=== PATIENT | female | born 1970 | race Caucasian/White ===

== ENCOUNTER → 2016-10-18 | Outpatient (CLI) | payer BC ==
--- NOTE | 2016-10-18 09:20 | WWHP ---
DATE OF SERVICE: 10/18/2016 CHIEF COMPLAINT: The patient is here for her routine gynecologic exam and mammogram. HPI: This is a 46-year-old, G2, P2 with an LMP of 10/18/2016. She states her periods seems to be just starting today and is very light. She states her periods are now starting with several days of spotting before it goes into the real flow. She is otherwise without complaints. PAST MEDICAL HISTORY: She was told she had a thyroid cyst in the past, but this has not caused any problems for her. She denies any other medical problems. MEDICATIONS: None. ALLERGIES: PENICILLIN, which caused hives. PAST SURGICAL HISTORY: None. 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 SOCIAL HISTORY: She denies tobacco and drug use and has 0 to 1 alcoholic drinks per week. She has been since 2000. 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 FAMILY HISTORY: Unchanged from the 2014 H&P. REVIEW OF SYSTEMS: Weight has been stable. She denies respiratory, cardiac, or GI problems. PHYSICAL EXAM: Blood pressure 136/85. Height 5 feet 9 inches. Weight 203 pounds. Temperature 98.3, pulse 74. This a well-developed, well-nourished white female who is alert and oriented x3 in no acute distress. HEENT is within normal limits. NECK: Supple without mass or thyromegaly. There are no palpable thyroid nodules noted. CHEST AND LUNGS: Clear to auscultation. HEART: Regular rate and rhythm. Breasts are without mass or discharge. Axillary exam is negative for adenopathy. BACK: Negative for CVA tenderness. ABDOMEN: Soft, nontender, without palpable masses. PELVIC EXAM: Normal external genitalia. Cervix and vagina reveal small amount of blood at the cervical os consistent with the onset of menstrual period. There is no significant blood in the vagina other than this. There is no evidence of prolapse. The uterus is retroverted, nongravid size and nontender. There are no palpable adnexal masses or tenderness. Rectal exam is negative for mass or tenderness and is negative for occult blood. EXTREMITIES: Nontender. IMPRESSION: A 46-year-old female with normal gynecologic exam. PLAN: 1. Pap smear was performed. 2. Self breast examination was discussed. 3. Mammogram will be done today. 4. The patient will keep a menstrual calendar and call if she is having menstrual problems. 5. She will return in one year.
--- NOTE | 2016-10-23 11:08 | MM ---
Reason for exam: screening (asymptomatic). Last mammogram was performed 2 years and 6 months ago. History: Family history of breast cancer in maternal grandmother at age 50. Physical Findings: A clinical breast exam by your physician is recommended on an annual basis and results should be correlated with mammographic findings. MG 3D Screening Mammo W/Cad Bilateral CC and MLO view(s) were taken. Prior study comparison: April 16, 2014, bilateral MG screening mammo w CAD. August 06, 2012, bilateral digital screening mammo w/CAD. The breast tissue is heterogeneously dense. This may lower the sensitivity of mammography. There is no discrete abnormality. No significant changes when compared with prior studies. ASSESSMENT: Negative, BI-RAD 1 RECOMMENDATION: Routine screening mammogram of both breasts in 1 year.
== END | disposition home or self-care (01) ==
LOC: WWCWWP 08:01
PROVIDERS: ATTEND Obstetrics & Gynecology
DX: Z12.31 Encounter for screening mammogram for malignant neoplasm of breast (principal)
CPT/HCPCS: 77063; G0202

== ENCOUNTER → 2019-06-17 | Outpatient (CLI) | payer BC ==
[2019-06-17 11:31] VITALS: BP 135/91; PULSE 75; RESP 16; TEMP 98
--- NOTE | 2019-06-17 12:19 | P.HPOB ---
History of Present Illness H&P Date: 06/17/19 Chief Complaint: The patient is here for her routine gynecologic exam and ma mmogram. This is a 48-year-old with an LMP of 06/04/2019. The patient has been regular with her menstrual periods, but did miss her menstrual period in March. They have been regular since then. She has been experiencing a slight dull discomfort in the right upper quadrant of the abdomen which she notices most of the time. When she is active, it is not as noticeable, but when she sits for a while she tends to notice it more. It does not seem to be affected by eating and she denies any GI symptoms. She is otherwise without complaints. Review of Systems She has gained about 7 pounds over the last 2 years. She denies respiratory, cardiac, or GI problems. Past Medical History Past Medical History: No Reported History Additional Past Medical History / Comment(s): She once had a thyroid cyst in the past. 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 History of Any Multi-Drug Resistant Organisms: None Reported Past Surgical History: No Surgical Hx Reported Past Psychological History: No Psychological Hx Reported Smoking Status: Never smoker Past Alcohol Use History: Occasional (1 or 2 per week) Additional History: She has been since 2000. 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 - Past Family History Mother Family Medical History: No Reported History Additional Family Medical History / Comment(s): Maternal grandmother and a maternal great aunt had breast cancer. Medications and Allergies Home Medications Medication Instructions Recorded Confirmed Type Magnesium Citrate 125 mg PO DAILY 06/17/19 06/17/19 History Allergies Allergy/AdvReac Type Severity Reaction Status Date / Time Penicillins Allergy Rash/Hives Unverified 06/17/19 11:31 Exam Vital Signs Temp Pulse Resp BP Pulse Ox 06/17/19 11:28 98.0 F 75 16 135/91 99 Intake and Output 06/16/19 06/17/19 06/17/19 22:59 06:59 14:59 Other: Weight 95.254 kg Height 5 feet 8 inches, weight 210 pounds, BMI 31.9. This is a well-developed well-nourished white female who is alert and oriented times 3 in no acute distress. HEENT: Within normal limits. NECK: Supple without mass or thyromegaly. CHEST AND LUNGS: Clear to auscultation. HEART: Regular rate and rhythm. BREASTS: Are without mass or discharge. AXILLARY EXAM: Negative for adenopathy. BACK: Negative for CVA tenderness. ABDOMEN: Soft, nontender, without palpable masses. The right upper quadrant is without mass or tenderness. The abdomen is nondistended. There are 2+ bowel sounds. PELVIC EXAM: Normal external genitalia. Cervix and vagina appear normal. There is no unusual discharge. There is no evidence of prolapse. The uterus is retroverted, nongravid size and nontender. There are no palpable adnexal masses or tenderness. RECTAL EXAM: negative for mass or tenderness and is negative for occult blood. EXTREMITIES: Nontender. IMPRESSION: 1. 48-year-old female with normal gynecologic exam. 2. Dull right upper quadrant discomfort without any significant physical findings at this time. Differential diagnosis will include gallbladder problems, liver disorder, bowel discomfort. PLAN: 1. Pap smear was performed. 2. Self breast awareness was discussed with the patient. 3. Screening mammogram will be done today. 4. The patient will keep a menstrual calendar and call if menstrual problems. 5. The patient states she will establish with a primary care physician and will discussed the right upper quadrant discomfort with that doctor. I had offered a right upper quadrant abdominal ultrasound, but she states she will follow-up with a primary care physician. 6. She was advised to return in one year for her annual well woman exam.
--- NOTE | 2019-06-18 10:12 | MM ---
Reason for exam: screening (asymptomatic). Last mammogram was performed 2 years and 8 months ago. History: Family history of breast cancer in maternal grandmother at age 50. Physical Findings: A clinical breast exam by your physician is recommended on an annual basis and results should be correlated with mammographic findings. MG 3D Screening Mammo W/Cad Bilateral CC and MLO view(s) were taken. Prior study comparison: October 18, 2016, bilateral MG 3d screening mammo w/cad. April 16, 2014, bilateral MG screening mammo w CAD. The breast tissue is heterogeneously dense. This may lower the sensitivity of mammography. There are benign appearing round calcifications in the left breast. There is chronic nodularity in the right breast subareolar, no change from 2013. There is no discrete abnormality. ASSESSMENT: Benign, BI-RAD 2 RECOMMENDATION: Routine screening mammogram of both breasts in 1 year.
== END | disposition home or self-care (01) ==
LOC: WWCWWP 11:15
PROVIDERS: ATTEND Obstetrics & Gynecology
DX: Z12.31 Encounter for screening mammogram for malignant neoplasm of breast (principal)
CPT/HCPCS: 77063; 77067

== ENCOUNTER → 2019-10-09 | Outpatient (CLI) | payer BC ==
--- NOTE | 2019-10-09 12:59 | US ---
EXAMINATION TYPE: US venous doppler duplex LE LT DATE OF EXAM: 10/09/2019 12:29 PM COMPARISON: NONE CLINICAL HISTORY: M79.662 PAIN IN LEFT LOWER LIMB, R22.42 SWELLING OF LEFT LOW. SIDE PERFORMED: Left TECHNIQUE: The lower extremity deep venous system is examined utilizing real time linear array sonog ruthy with graded compression, doppler sonography and color-flow sonography. VESSELS IMAGED: External Iliac Vein (EIV) Common Femoral Vein Deep Femoral Vein Greater Saphenous Vein * Femoral Vein Popliteal Vein Small Saphenous Vein * Proximal Calf Veins (* superficial vessels) Left Leg: Negative for DVT Grayscale, color doppler, spectral doppler imaging performed of the deep veins of the left lower extr emity. There is normal flow, compressibility, vascular waveforms. IMPRESSION: No ultrasound evidence for acute DVT in the left lower extremity.
--- NOTE | 2019-10-09 13:03 | US ---
EXAMINATION TYPE: US abdomen complete DATE OF EXAM: 10/09/2019 COMPARISON: NONE CLINICAL HISTORY: R10 ABDOMINAL PAIN, R10.11 RUQ. RUQ pain EXAM MEASUREMENTS: Liver Length: 16.3 cm Gallbladder Wall: 0.3 cm CBD: 0.4 cm Spleen: 8.6 cm Right Kidney: 9.7 x 4.6 x 4.7 cm Left Kidney: 10.7 x 4.6 x 3.3 cm Pancreas: Tail obscured by overlying bowel gas Liver: Solitary cyst measuring 1.5 x 1.4 x 1.6 cm Gallbladder: wnl Evidence for sonographic Hall's sign: No CBD: wnl Spleen: wnl Right Kidney: No hydronephrosis or masses seen Left Kidney: No hydronephrosis or masses seen Upper IVC: wnl Abd Aorta: wnl The liver is homogenous other than a solitary hepatic cyst measuring 1.6 cm. The intrahepatic portio n of the IVC and proximal abdominal aorta are within normal limits. There is no evidence of cholelit hiasis. Common bile duct is unremarkable. The visualized portions of the pancreas are homogenous. The spleen is unremarkable. Kidneys are symmetric and free of hydronephrosis. No renal lesions are seen. IMPRESSION: No sonographic evidence of cholelithiasis nor acute cholecystitis. Incidentally noted darlene itary hepatic cyst measuring 1.6 cm.
== END | disposition home or self-care (01) ==
LOC: RADUSWWP 11:53
PROVIDERS: ATTEND Family Medicine
DX: R10.11 Right upper quadrant pain (principal); M79.662 Pain in left lower leg
CPT/HCPCS: 76700

== ENCOUNTER 2020-03-10 07:38 | Day surgery (SDC) | payer BC ==
[2020-03-09 12:32] VITALS: BMI 30.7
[~2020-03-10 07:38] MED LIST: LACTATED RINGERS 1,000 ML IV SCH
[2020-03-10 08:15] VITALS: RESP 16; TEMP 97.8
[2020-03-10] MEDS ORDERED: LIDOCAINE 1% (10MG/ML) FOR IV START INTRADERMA ONE (08:25)
[2020-03-10] MEDS ORDERED: PROPOFOL 10 MG/ML 20 ML VIAL IV ONE (08:51)
[2020-03-10] MEDS ORDERED: LIDOCAINE 1% INJ 10MG/ML (20 ML MDV) ONE (08:51)
--- NOTE | 2020-03-10 09:11 | P.PCN ---
Date of Procedure: 03/10/20 Procedure(s) Performed: Brief history: Patient is a pleasant 49-year-old white female scheduled for an elective upper endoscopy as well as colonoscopy as a part of evaluation of evaluation of chronic right-sided abdominal pain for the last 6 months duration. Procedure performed: Esophagogastroduodenoscopy with biopsy Colonoscopy Preoperative diagnosis: Chronic right-sided abdominal pain Anesthesia: MAC Procedure: After informed consent was obtained from the patient was brought into the endoscopy unit and IV sedation was administered by anesthesia under continuous monitoring. Initially upper endoscopy was done. The Olympus GF 160 video endoscope was inserted inserted into the mouth and esophagus intubated without any difficulty and was gradually advanced into the stomach and duodenum and carefully examined. The bulb and second part of the duodenum appeared normal. Biopsies were done from this area to rule out celiac disease. The scope was then withdrawn into the stomach adequately insufflated with air and upon careful examination the antrum had mild mottling of the mucosa of the antrum had mild gastritis and biopsies were done. The body, cardia and fundus appeared normal. The scope was then withdrawn into the esophagus. The GE junction was located at 40 cm to the incisors. It appeared regular with no erythema erosions or ulcerations. Rest of the esophagus appeared normal. Patient tolerated the procedure well. At this time the patient continued to remain sedation. Initial digital rectal examination was normal. Olympus CF 160 video colonoscope was then inserted into the rectum and gradually advanced to the cecum without any difficulty. Careful examination was performed as the scope was gradually being withdrawn. The prep was excellent. The cecum, ascending colon, transverse colon, descending colon, sigmoid colon and rectum appeared normal. Retroflexion was performed in the rectum and no lesions were noted. Patient tolerated the procedure well. Impression: 1. Upper endoscopy revealed mild antral gastritis. 2. Colonoscopy was within normal limits with no evidence of colorectal neoplasia Recommendations: Findings of this examination were discussed with the patient as well as. She was advised to follow with the biopsy results. he can have a repeat screening colonoscopy in 10 years.
[2020-03-10 09:39] VITALS: BP 124/75; PULSE 64
== END 2020-03-10 09:53 | disposition home or self-care (01) ==
LOC: ORWHC2ENDO 07:38
PROVIDERS: ATTEND Internal Medicine Gastroenterology
DX: K29.50 Unspecified chronic gastritis without bleeding (principal); R10.9 Unspecified abdominal pain; Z88.0 Allergy status to penicillin
CPT/HCPCS: 45378; 43239; 81025; 88305; J2001; J2704

== ENCOUNTER → 2020-09-03 | Outpatient (CLI) | payer BC ==
--- NOTE | 2020-09-03 14:32 | CT ---
EXAMINATION TYPE: CT abdomen w con DATE OF EXAM: 09/03/2020 COMPARISON: Pain HISTORY: RUQ pain for [address] DLP: 846.1 mGycm Automated exposure control for dose reduction was used. TECHNIQUE: Helical acquisition of images was performed from the lung bases through the top of iliac crest to include entire abdomen. CONTRAST: Performed with Oral Contrast and with IV Contrast, patient injected with 100 mL of Isovue 300. FINDINGS: LUNG BASES: No significant abnormality is appreciated. LIVER/GB: There are multiple hypodensities within the liver all measuring less than centimeter too sm all to characterize but statistically most likely related to cysts. PANCREAS: No significant abnormality is seen. SPLEEN: No significant abnormality is seen. ADRENALS: No significant abnormality is seen. KIDNEYS: Tiny less than 5 mm hypodensity left kidney too small to characterize but statistically most likely related to simple cyst. BOWEL: No significant abnormality is seen. LYMPH NODES: No significant abnormality is seen. OSSEOUS STRUCTURES: Severe degenerative disc disease L5-S1. OTHER: Aorta of normal caliber. Tiny fat-containing periumbilical hernia. IMPRESSION: 1. Hypodense lesions in the liver and kidney are too small to characterize but statistically most lik blayne related to cysts. 2. No acute process.
== END | disposition home or self-care (01) ==
LOC: RADCTMAIN 10:48
PROVIDERS: ATTEND Family Medicine
DX: N28.89 Other specified disorders of kidney and ureter (principal); K76.89 Other specified diseases of liver
CPT/HCPCS: 74160; Q9967

== ENCOUNTER → 2020-11-16 | Outpatient (CLI) | payer BC ==
[2020-11-16 15:33] VITALS: BP 127/81; PULSE 75; RESP 18; TEMP 98.1
--- NOTE | 2020-11-16 16:07 | P.HPOB ---
History of Present Illness H&P Date: 11/16/20 Chief Complaint: The patient is here for her routine gynecologic exam and ma mmogram. This is a 50-year-old with an LMP of 11/03/2020. The patient states her menstrual periods are mostly monthly, but they have been times she has skipped one or 2 menstrual periods. She denies hot flashes. She had previously been seen for some right upper quadrant pains and was asked to establish with a primary care physician who could follow up with this. She has established with a PCP who did do a workup including an ultrasound. She states the pains are much less frequent and she thinks they may have been related to stress. Review of Systems The patient has lost 6 pounds over the last year. She denies respiratory, cardiac, or G.I. problems. Past Medical History Past Medical History: No Reported History Additional Past Medical History / Comment(s): She once had a thyroid cyst in the past. HAVING PAIN IN URQ History of Any Multi-Drug Resistant Organisms: None Reported Past Surgical History: No Surgical Hx Reported Additional Past Surgical History / Comment(s): Colonoscopy 2019 which was normal. Past Anesthesia/Blood Transfusion Reactions: No Reported Reaction Past Psychological History: No Psychological Hx Reported Smoking Status: Never smoker Past Alcohol Use History: Occasional (0-1 per week) Past Drug Use History: None Reported Additional History: She has been since 2000. 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 - Past Family History Mother Family Medical History: No Reported History Additional Family Medical History / Comment(s): Maternal grandmother and a maternal great aunt had breast cancer. Sister(s) Additional Family Medical History / Comment(s): Narcolepsy. Medications and Allergies Home Medications Medication Instructions Recorded Confirmed Type Magnesium Citrate 125 mg PO DAILY 06/17/19 11/16/20 History Multivitamin [Multivitamins Adult 1 each PO DAILY 11/16/20 11/16/20 History Gummies] Vitamin B Complex 1 tab PO DAILY 11/16/20 11/16/20 History Allergies Allergy/AdvReac Type Severity Reaction Status Date / Time Penicillins Allergy Rash/Hives Verified 11/16/20 15:28 Exam Vital Signs Temp Pulse Resp BP Pulse Ox 11/16/20 15:28 98.1 F 75 18 127/81 99 Intake and Output 11/16/20 11/16/20 11/16/20 06:59 14:59 22:59 Other: Weight 92.533 kg Height 5 feet 7 inches, weight 204 pounds, BMI 32.0. This is a well-developed well-nourished white female who is alert and oriented times 3 in no acute distress. HEENT: Within normal limits. NECK: Supple without mass or thyromegaly. CHEST AND LUNGS: Clear to auscultation. HEART: Regular rate and rhythm. BREASTS: Are without mass or discharge. AXILLARY EXAM: Negative for adenopathy. BACK: Negative for CVA tenderness. ABDOMEN: Soft, nontender, without palpable masses. PELVIC EXAM: Normal external genitalia. Cervix and vagina appear normal. There is no unusual discharge. There is no evidence of prolapse. The uterus is retroverted, nongravid size and nontender. There are no palpable adnexal masses or tenderness. RECTAL EXAM: negative for mass or tenderness and is negative for occult blood. EXTREMITIES: Nontender. IMPRESSION: 1. 50-year-old perimenopausal female with normal gynecologic exam. PLAN: 1. Pap smear was deferred since she had a normal one on 06/17/2019. 2. Self breast awareness was discussed with the patient. 3. Screening mammogram will be done today. 4. Osteoporosis prevention was discussed. I have stressed the importance of adequate calcium, vitamin D and regular exercise. Recommended amounts of calcium and vitamin D were also discussed. 5. She was advised to return in one year for her annual well woman exam.
--- NOTE | 2020-11-17 09:09 | MM ---
Reason for exam: screening (asymptomatic). Last mammogram was performed 1 year and 5 months ago. History: Family history of breast cancer in maternal grandmother at age 50. Physical Findings: A clinical breast exam by your physician is recommended on an annual basis and results should be correlated with mammographic findings. MG 3D Screening Mammo W/Cad Bilateral CC and MLO view(s) were taken. Prior study comparison: June 17, 2019, bilateral MG 3d screening mammo w/cad. October 18, 2016, bilateral MG 3d screening mammo w/cad. The breast tissue is heterogeneously dense. This may lower the sensitivity of mammography. There is no discrete abnormality. No significant changes when compared with prior studies. ASSESSMENT: Benign, BI-RAD 2 RECOMMENDATION: Routine screening mammogram of both breasts in 1 year.
== END ==
LOC: WWCWWP 15:20
PROVIDERS: ATTEND Obstetrics & Gynecology
DX: Z01.419 Encounter for gynecological examination (general) (routine) without abnormal findings (principal); Z12.31 Encounter for screening mammogram for malignant neoplasm of breast; Z80.3 Family history of malignant neoplasm of breast
CPT/HCPCS: 77063; 77067

== ENCOUNTER → 2023-01-02 | Outpatient (CLI) | payer BC ==
[2023-01-02 15:20] VITALS: BP 132/79; PULSE 69; RESP 16; TEMP 98.9
--- NOTE | 2023-01-02 15:52 | P.HPOB ---
History of Present Illness H&P Date: 01/02/23 Chief Complaint: The patient is here for her routine gynecologic exam and ma mmogram. This is a 52-year-old with an LMP of 12/11/2022. The patient states she has had fairly regular periods and has missed 1 or 2 menstrual periods since during the past year. She denies any significant hot flashes. She is without gynecologic complaints. Review of Systems The patient has gained 5 pounds over the last year. She denies respiratory, cardiac, or G.I. problems. Past Medical History Past Medical History: No Reported History Additional Past Medical History / Comment(s): She once had a thyroid cyst in the past. 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 History of Any Multi-Drug Resistant Organisms: None Reported Past Surgical History: No Surgical Hx Reported Additional Past Surgical History / Comment(s): Colonoscopy 2020 which was normal. Past Anesthesia/Blood Transfusion Reactions: No Reported Reaction Past Psychological History: No Psychological Hx Reported Smoking Status: Never smoker Past Alcohol Use History: Occasional (0-2 per week.) Past Drug Use History: None Reported Additional History: She has been since 2000. 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 - Past Family History Mother Family Medical History: No Reported History Additional Family Medical History / Comment(s): Maternal grandmother and a maternal great aunt had breast cancer. Sister(s) Additional Family Medical History / Comment(s): Narcolepsy. Medications and Allergies Home Medications Medication Instructions Recorded Confirmed Type Magnesium Citrate 125 mg PO DAILY 06/17/19 01/02/23 History Vitamin B Complex 1 tab PO DAILY 11/16/20 01/02/23 History Vitamin D3/Vitamin K2 (Mk4) 1 tab PO DAILY 01/02/23 01/02/23 History [Vitamin K2 Plus D3 Tablet] Allergies Allergy/AdvReac Type Severity Reaction Status Date / Time Penicillins Allergy Rash/Hives Verified 01/02/23 15:14 Exam Vital Signs Temp Pulse Resp BP Pulse Ox 01/02/23 15:15 98.9 F 69 16 132/79 97 Intake and Output 01/02/23 01/02/23 01/02/23 06:59 14:59 22:59 Other: Weight 94.801 kg Height 5 feet 8 inches, weight 209 pounds, BMI 31.8. This is a well-developed well-nourished white female who is alert and oriented times 3 in no acute distress. HEENT: Within normal limits. NECK: Supple without mass or thyromegaly. CHEST AND LUNGS: Clear to auscultation. HEART: Regular rate and rhythm. BREASTS: Are without mass or discharge. AXILLARY EXAM: Negative for adenopathy. BACK: Negative for CVA tenderness. ABDOMEN: Soft, nontender, without palpable masses. PELVIC EXAM: Normal external genitalia. Cervix and vagina appear normal. There is no unusual discharge. There is no evidence of prolapse. The uterus is retroverted, multiparous, nongravid size and nontender. There are no palpable adnexal masses or tenderness. RECTAL EXAM: Rectovaginal exam is negative for mass or tenderness and is negative for occult blood. EXTREMITIES: Nontender. IMPRESSION: 1. 52-year-old premenopausal female with normal gynecologic exam. PLAN: 1. Pap smear cotest was performed. 2. Self breast awareness was discussed with the patient. We have also discussed symptoms associated with inflammatory breast cancer. 3. Screening mammogram was done today. 4. Osteoporosis prevention was discussed. I have stressed the importance of adequate calcium, vitamin D and regular exercise. Recommended amounts of calcium and vitamin D were also discussed. 5. Weight control was discussed. She states she has been having a difficult time losing weight. We have discussed the importance of good nutrition, regular meals, adequate fiber and regular exercise. 6. She was advised to return in one year for her annual well woman exam.
--- NOTE | 2023-01-03 18:53 | MM ---
Reason for Exam: Screening (asymptomatic). Last mammogram was performed 2 year(s) and 2 month(s) ago. Patient History: Menarche at age 11. First Full-Term at age 30. Late child-bearing (after 30). Maternal grandmother had breast cancer, age 50. Last menstrual period: 12/11/2022 Risk Values: Ayanna 5 year model risk: 1.6%. NCI Lifetime model risk: 12.8%. Prior Study Comparison: 10/18/2016 Bilateral Screening Mammogram, [facility]. 06/17/2019 Bilateral Screening Mammogram, [facility]. 11/16/2020 Bilateral Screening Mammogram, [facility]. Tissue Density: There are scattered fibroglandular densities. Findings: Analyzed By CAD. Pattern appears symmetrical and stable. No significant interval change is evident. Few scattered benign-appearing calcifications are present bilaterally No suspicious groups of microcalcifications, spiculated or lobular masses, architectural distortion or other secondary signs of malignancy are mammographically apparent. Overall Assessment: Benign, BI-RAD 2 Management: Screening Mammogram of both breasts in 1 year. A negative mammogram report should not preclude additional follow up of suspicious palpable abnormalities. Patient should continue monthly self breast exam. A clinical breast exam by your physician is recommended on an annual basis and results should be correlated with mammographic findings. Electronically signed and approved by: Gamaliel Trimble D.O. Radiologis
== END | disposition home or self-care (01) ==
LOC: RADMAMWWP 14:52
PROVIDERS: ATTEND Obstetrics & Gynecology
DX: Z12.31 Encounter for screening mammogram for malignant neoplasm of breast (principal); Z01.419 Encounter for gynecological examination (general) (routine) without abnormal findings; Z80.3 Family history of malignant neoplasm of breast
CPT/HCPCS: 77063; 77067